=== PATIENT | female | born 1985 | race Caucasian/White ===

== ENCOUNTER → 2018-06-22 10:11 | Outpatient (CLI) | payer OTHER, SELFPAY ==
[2018-06-22 11:18] LABS: Appearance Urine UA CLEAR; Bilirubin Urine UA NEGATIVE (NEGATIVE); Color Urine UA YELLOW; Glucose Urine UA NEGATIVE (Negative); Ketones Urine UA TRACE (NEGATIVE); Leukocyte Esterase Urine UA TRACE (NEGATIVE); Nitrite Urine UA NEGATIVE (Negative); Occult Blood Urine UA NEGATIVE (Negative); Protein Urine UA TRACE (Negative); Specific Gravity Urine UA >=1.030 (1.000-1.035); Urobilinogen Urine UA 0.2 E.U./dL (0.2); pH Urine UA 5.5 (4.5-8.0)
[2018-06-22 12:08] LABS: Bacteria Urine Few (2-10); RBC Urine 1-5/HPF (0-5/HPF); Squamous Epithelial Cell Urine 5-10 /HPF; WBC Urine 5-10/HPF (0-5/HPF)
[2018-06-22 12:09] LABS: Culture Indicated Urine Cult Not Indicated; Urine Comments CX ALREADY ORDERED
[2018-06-22 14:39] LABS: Urine N gonorrhoeae NOT DETECTED
[2018-06-22 14:43] LABS: Urine Chlamydia NOT DETECTED
== END ==
PROVIDERS: PCP Specialist; Visit Provider Specialist
DX: Z3A.08 8 weeks gestation of pregnancy (principal); Z34.81 Encounter for supervision of other normal pregnancy, first trimester
CPT/HCPCS: 81003; 81015; 87086; 87491; 87591

== ENCOUNTER → 2018-06-22 10:27 | Outpatient (CLI) | payer OTHER, SELFPAY ==
[2018-06-22 11:10] LABS: Add Manual Diff / Slide Review NO; Basophils Absolute Auto 0 /uL (0-100); Basophils Percent Auto 0.4 % (0-2); Eosinophils Absolute Auto 100 /uL (0-450); Eosinophils Percent Auto 1.7 % (2-4); Hematocrit 40.5 % (36-46); Hemoglobin 13.3 g/dL (12.0-16.0); Lymphocytes Absolute Auto 1500 /uL (1100-4500); Lymphocytes Percent Auto 19.6 % (25-40); Mean Corpuscular HGB Conc 32.9 % (30-36); Mean Corpuscular Hemoglobin 31.3 PG (26-34); Mean Corpuscular Volume 95.4 fL (80-100); Monocytes Absolute Auto 600 /uL (0-900); Neutrophils Absolute Auto 5300 /uL (1500-7000); Neutrophils Percent Auto 70.3 % (50-75); Platelet Count 254 X10^3/uL (150-400); Red Blood Cell Count 4.25 X10^6/uL (4.0-5.2); Red Cell Distribution Width 13.1 % (11.6-14.8); White Blood Cell Count 7.5 X10^3/uL (4.5-11.0)
[2018-06-22 12:56] LABS: HIV 1 and 2 Antibody NEGATIVE (NEGATIVE); Hep C Virus Ab w/Reflex Quant NEGATIVE s/c (NEGATIVE); Hepatitis B Surface Antigen NEGATIVE s/c (NEGATIVE)
[2018-06-25 06:20] LABS: RPR Screen Nonreactive (Nonreactive)
== END ==
PROVIDERS: Visit Provider Specialist
DX: Z34.81 Encounter for supervision of other normal pregnancy, first trimester (principal)
CPT/HCPCS: 36415; 80055; 86703; 86787; 86803; 86850; 86900; 86901

== ENCOUNTER → 2018-09-14 14:16 | Outpatient (CLI) | payer OTHER, SELFPAY ==
--- NOTE | 2018-09-14 14:17 | DI.US.S_ITS ---
PROCEDURE: US OB >= 14 WEEKS FETUS INDICATIONS: ANATOMY OUTSIDE/PRIOR DATING DATA: Last menstrual period (LMP): 04/23/18. LMP-based estimated date of delivery (CATALINA): 01/28/19. First dating scan (date and location): 06/22/18. Estimated date of delivery (CATALINA) from first dating scan: 02/05/19. TECHNIQUE: Real-time scanning was performed of the fetus, with image documentation and biometric measurements. Endovaginal scanning: No COMPARISON: None. FINDINGS: General: A single living intrauterine gestation is present. Presentation: Vertex. Placenta: Placental position is posterior, without previa. Amniotic fluid index: 14.8 cm, normal range is 5-24 cm. heart rate: 157 beats per minute. Maternal cervical canal: 4.1 cm long. Normal lower limit is 2.5 cm. biometrics: Biparietal diameter: 20 weeks 0 days Head circumference: 19 weeks 5 days Abdominal circumference: 20 weeks 4 days Femur length: 19 weeks 6 days Estimated gestational age from initial scan: 19 weeks 3 days Composite gestational age from present scan: 20 weeks Estimated weight and percentile: 33 g; 86 percentile Measurement variability for biometric dating: +/- 7 days from 14 weeks to 15 weeks 6 days gestation, +/- 10 days from 16 weeks to 21 weeks 6 days gestation, +/- 2 weeks from 22 weeks to 27 weeks 6 days gestation, +/- 3 weeks for 28 weeks gestation or later. weight reference: 4500 g or EFW >90/95% is considered macrosomia or large for gestational age. EFW <10% is small for gestational age. EFW 5% or less is considered intra-uterine growth restriction. Anatomic survey: Neuro: Ventricles are non-dilated at less than 10 mm. Cisterna magna is normal at 3-11 mm. Cerebellum is normal in size and morphology. Nuchal skin fold: Normal at less than 6 mm between 14-21 weeks gestational age. Face: Nose and lips, facial profile are normal. Spine: No evidence for spina bifida. Heart: 4-chambered heart is present, with normal ventricular outflow tracts. Diaphragm: Diaphragm is intact. Stomach: Left-sided stomach is present. Kidneys: No hydronephrosis. Normal is less than 5 mm in 2nd trimester, less than 7 mm in 3rd trimester. Cord: 3-vessel cord has orthotopic insertion. Bladder: Normal in size. Extremities: All 4 extremities identified. IMPRESSION: 1. Normal interval growth. 2. Normal anatomic survey. Dictated by: Angel TERRY Interpreted: Nikita Mancia MD on 09/14/2018 at 16:14 Approved by: Nikita Mancia M.D. on 09/14/2018 at 16:46
== END ==
PROVIDERS: Visit Provider Specialist
DX: Z36.89 Encounter for other specified antenatal screening (principal); Z3A.20 20 weeks gestation of pregnancy
CPT/HCPCS: 76811

== ENCOUNTER → 2018-10-18 10:45 | Outpatient (CLI) | payer OTHER, SELFPAY ==
[2018-10-18 12:08] LABS: Hematocrit 36.1 % (36-46); Hemoglobin 11.9 g/dL (12.0-16.0)
[2018-10-18 12:32] LABS: GTT (PREG) 1 Hour PP 50gm Dose 160 mg/dL (76-139)
== END ==
PROVIDERS: Visit Provider Specialist
DX: Z34.92 Encounter for supervision of normal pregnancy, unspecified, second trimester (principal); Z3A.24 24 weeks gestation of pregnancy
CPT/HCPCS: 36415; 82950; 85014; 85018

== ENCOUNTER → 2019-01-04 13:51 | Outpatient (CLI) | payer OTHER, SELFPAY ==
[2019-01-05 14:07] LABS: Strep Grp B PCR NEG for Grp B Strep
== END ==
PROVIDERS: Visit Provider Specialist
DX: Z34.83 Encounter for supervision of other normal pregnancy, third trimester (principal); Z3A.36 36 weeks gestation of pregnancy
CPT/HCPCS: 87653

== ENCOUNTER 2019-01-28 10:51 | Inpatient (IN) | payer OTHER, SELFPAY ==
--- NOTE | 2019-01-28 11:35 | PM.PREOP ---
Pre-operative Note Interval Note History & Physical reviewed/Exam performed by Physician: Yes Changes to H&P: No H&P completed within 30 days and has changed as indicated here:: See ACOG form. Patient declines blood transfusion.
[2019-01-28 11:40] VITALS: BP 136/87
[2019-01-28] MEDS: LACTATED RINGERS 1,000 ML 100 ML IV ×4 (11:42→15:15)
[2019-01-28 12:10] LABS: Add Manual Diff / Slide Review NO; Basophils Absolute Auto 0 /uL (0-100); Basophils Percent Auto 0.5 % (0-2); Eosinophils Absolute Auto 100 /uL (0-450); Hematocrit 40.4 % (36-46); Hemoglobin 13.6 g/dL (12.0-16.0); Lymphocytes Absolute Auto 1300 /uL (1100-4500); Lymphocytes Percent Auto 13.9 % (25-40); Mean Corpuscular HGB Conc 33.7 % (30-36); Mean Corpuscular Hemoglobin 32.7 PG (26-34); Monocytes Absolute Auto 700 /uL (0-900); Monocytes Percent Auto 7.9 % (3-14); Neutrophils Absolute Auto 7100 /uL (1500-7000); Neutrophils Percent Auto 76.7 % (50-75); Platelet Count 134 X10^3/uL (150-400); Red Blood Cell Count 4.17 X10^6/uL (4.0-5.2); Red Cell Distribution Width 13.5 % (11.6-14.8); White Blood Cell Count 9.2 X10^3/uL (4.5-11.0)
[2019-01-28] MEDS: CEFAZOLIN 2 GM/100 ML FROZ.PIGGY IV (13:20)
--- NOTE | 2019-01-28 13:34 | SUR.OPER ---
Supine on Padded OR bed, head on pillow, safety belt at thigh, arms secured on padded arm boards at <90 degrees abduction. Bump under right buttock. Legs uncrossed with pillow under knees, gel pad to heels, tape over blanket to lower legs.
--- NOTE | 2019-01-28 13:36 | SUR.OPER ---
Viable male delivered at 1327. Cord Blood and Placenta sent with L&D nurse.
[2019-01-28 14:03] VITALS: BP 125/85; PULSE 73; RESP 12; TEMP 36.9; O2SAT 100
--- NOTE | 2019-01-28 14:04 | PM.OP.1 ---
Operative Date/Time/Diagnoses Date of procedure: 01/28/19 Time of procedure: 14:04 Pre-op diagnosis: Term with prior section for repeat section Post-op diagnosis: same Procedure & Clinicians Procedure: Repeat low-transverse section Same procedure as scheduled: Yes Indications: Term with prior section for repeat Surgeon: Susy Last [facility] [employer] Attendant: Elier Hunt Yes if Unassisted: No Anesthesia Type: Spinal Operative Notes Findings: Normal tubes ovaries and uterus with viable male weight 7 lb 4 oz, Closure Type: primary Specimen(s): none sent Applied: catheter (Turpin) Estimated Blood Loss (mL): 350 Blood products transfused: none Procedure in detail: The patient was brought to the operating room where she underwent a spinal for anesthesia. She was placed in a supine position with a left lateral tilt. A Turpin catheter was placed. Pulsatile stockings were placed and functional throughout the case. 2 g of Ancef were given IV prior to the incision. Warming was in place. The patient was prepped and draped in usual sterile fashion. A low transverse incision was made with a scalpel through the prior incision and the incision was carried down to the fascial layer which was incised transversely with scissors. The midline attachments are superiorly and inferiorly. Some bleeding was controlled Bovie. The rectus muscles were in the midline and the peritoneal incision was made with no damage to internal structures. The peritoneum was incised and superiorly and inferiorly. Bladder blade was placed and a bladder flap was developed and the bladder held away from the lower uterine segment. An incision was made in the uterus with the scalpel and the incision was extended with stretching. The head was elevated out of the abdomen and with fundal pressure the baby was delivered. The infant was bulb suctioned for clear fluid and handed off to the warmer. Cord blood was collected. The placenta delivered spontaneously with traction. The uterus was cleaned with clean laps. The uterine incision was closed in 2 layers of 0 chromic suture the first a running locking layer the second an imbricating layer. The bladder peritoneum was repaired with 2-0 Polysorb suture. The gutters were cleaned of any remaining fluids and ovaries and tubes were observed to be normal. Adequate hemostasis was noted. The perineum was closed with 2-0 Polysorb suture. The fascia layer was closed with 0 Polysorb suture with 2 stitches. The incision was irrigated and adequate hemostasis noted. The incision was closed with interrupted 3-0 Polysorb sutures and then a subcuticular stitch of 4-0 Polysorb suture. Steri-Strips were placed. The uterus was massaged to remove any clots. The patient went to recovery room in good condition. Counts of instruments and sponges were correct. Complications: none Post-operative Condition: stable Disposition: other ( Center) Plan for aftercare: Routine post section
[2019-01-28 14:08] VITALS: BP 133/80; PULSE 71; RESP 17; O2SAT 99
[2019-01-28 14:13] VITALS: BP 135/88; PULSE 70; RESP 12; O2SAT 99
[2019-01-28] MEDS: KETOROLAC 30 MG/ML VIAL IV ×2 (14:21→20:57)
[2019-01-28 14:24] VITALS: BP 141/86; PULSE 62; RESP 15; TEMP 36.6; O2SAT 98
--- NOTE | 2019-01-28 14:38 | SUR.PHASEI ---
Asked dr muniz about torodol prior to administration, dr muniz stated it was ok. pt transported to the and left with Leti and left in stable condition.
[2019-01-29] MEDS: LACTATED RINGERS 1,000 ML 100 ML IV (01:06)
[2019-01-29] MEDS: KETOROLAC 30 MG/ML VIAL IV ×2 (03:04→09:52)
[2019-01-29 05:08] LABS: Hematocrit 35.6 % (36-46); Hemoglobin 12.1 g/dL (12.0-16.0)
--- NOTE | 2019-01-29 09:00 | PM.OBPN.1 ---
Subjective - OB Subjective Patient comments: pain well controlled [place] baby status: nursing well feeding status: exclusively breast feeding Date Patient Seen: 01/29/19 Time Patient Seen: 09:00 Interval history: Post section day 1. Patient is doing well with good pain control. She was able to ambulate since having her Turpin catheter removed. Exam Vital Signs (past 8 hours): Blood pressure 132/80, pulse 64, temperature 97.9? Oxygen Delivery Method Room Air Narrative Exam Narrative: Abdomen is soft, nontender. Uterus is firm, U -1, mildly tender. Dressing is dry. Mild lochia. Extremities without edema and nontender. Objective Labs Result Diagrams: 01/29/19 04:45 Labs: Laboratory Results - last 24 hr 01/28/19 01/29/19 11:35 04:45 WBC 9.2 RBC 4.17 Hgb 13.6 12.1 Hct 40.4 35.6 L MCV 97.0 MCH 32.7 MCHC 33.7 RDW 13.5 Plt Count 134 L Neut % (Auto) 76.7 H Lymph % (Auto) 13.9 L [place] % (Auto) 7.9 Eos % (Auto) 1.0 L Baso % (Auto) 0.5 Neut # (Auto) 7100 H Lymph # (Auto) 1300 [place] # (Auto) 700 Eos # (Auto) 100 Baso # (Auto) 0 Assessment & Plan Assessment and Plan (1) Delivery by section of full-term : Status: Resolved Current Visit: No (2) Previous section: Status: Acute Current Visit: No Plan day: 1 plan OB: routine postop care Time Spent With Patient Time: Total time spent is greater than 50% in coordination of care (as documented) at patient's floor/unit and/or counseling patient: Time with patient: less than 15 minutes
[2019-01-29] MEDS: DOCUSATE 250 MG CAPSULE PO (09:45)
[2019-01-29 09:52] VITALS: TEMP 36.9
[2019-01-29 16:51] VITALS: TEMP 37.1
[2019-01-29] MEDS: IBUPROFEN 600 MG TABLET PO ×2 (16:51→23:53)
[2019-01-29] MEDS: OXYCODONE/ACETAMINOPHEN 5/325 TABLET 2 TAB PO (23:54)
[2019-01-30] MEDS: IBUPROFEN 600 MG TABLET PO ×2 (06:11→12:10)
[2019-01-30] MEDS: DOCUSATE 250 MG CAPSULE PO (09:01)
[2019-01-30 11:23] VITALS: BP 124/86; PULSE 81; RESP 16; TEMP 36.9
--- NOTE | 2019-02-01 20:02 | P.DS_ITS ---
Discharge Providers Provider Date of admission: 01/28/19 10:51 Discharge Date: 01/30/19 Primary care physician: KHOA Randolph Consults: 01/28/19 15:03 Consult to Corporate Communications Specialist Routine Comment: Discharge provider: Susy Last MD Summary Hospital Course Date Patient Seen: 01/30/19 Time Patient Seen: 08:00 Procedures: Repeat low-transverse section Hospital Course: Patient was admitted on 01/28/2019 for repeat low-transverse section at 39 weeks. Patient did well post section. By postoperative day 2. She was ambulating, urinating, passing gas, with good pain control. Peripartum Data Infant Delivery Method: Section Procedures: Repeat low-transverse section complications: none 1: Gender: Male Disposition of : home Discharge Diagnosis (1) Delivery by section of full-term : Status: Resolved (2) Previous section: Status: Acute Status at Discharge Cognitive/behavioral status at discharge: oriented Functional status at discharge: independent ambulation Overall status at discharge: patient is progressing back to baseline Time Spent with Patient Time attestation: Total time spent providing and/or coordinating discharge services: Objective Labs Result Diagrams: 01/29/19 04:45 Exam Vital Signs (past 8 hours): Blood pressure 124/86, pulse of 81, temperature 98.5? Oxygen Delivery Method Room Air Narrative Exam Narrative: Abdomen is soft, nontender. Uterus is firm, U -1, minimally tender. Dressing is clean dry and intact. Mild lochia. Extremities with out edema and nontender. Her blood type is A positive and she is rubella immune. She received Tdap in the 3rd trimester Discharge Plan Discharge Plan Patient Disposition: Home Discharge Med Rec/Prescriptions Prescriptions: New oxycodone-acetaminophen 5-325 mg Tablet 2 tab PO Q4HR PRN (Reason: Pain, Severe (7-10)) Qty: 40 RF: 0 ibuprofen 600 mg Tablet 600 mg PO Q6HR PRN (Reason: As Needed For Fever/Mild Pain) Qty: 30 RF: 0 docusate sodium 250 mg Capsule 250 mg PO DAILY Qty: 20 RF: 0 No Action No Known Home Medications RF: 0 Follow up/Referrals: Susy Last MD [Physician] - 1 Week (Remove Aquacel dressing on MondayFebruary 04 11:30 check in 1145 appointment. 4 week check on MondayMar.01 2:15 check in. if you have any questions/concerns or need to reschedule please call . ) Sandra Rose ARNP [Primary Care Provider] - Provider Discharge Instructions Diet: Regular Activity: Nothing in vagina and do not lift over 20 lb for 6 weeks Skin/Wound/Dressing Care Report to your healthcare provider any signs of infection, such as:: chills, fever, night sweats and unusual redness Dressing: Leave dressing in place until postop visit Visit Report/Discharge Packet Stand Alone Forms: Discharge: Care Discharge Data Primary Care Provider: Sandra Rose Discharges patient from system. Discharge Date/Time: 01/30/19 13:55
== END 2019-01-30 13:55 | disposition home or self-care (01) | DRG 788 ==
PROVIDERS: Admitting Provider Specialist; PCP Nurse Practitioner Family; Visit Provider Specialist
PROC: 10D00Z1 Extraction of Products of Conception, Low, Open Approach (ICD-10-PCS; CPT 59514; principal; 2019-01-28 13:00)
DX: O34.211 Maternal care for low transverse scar from previous cesarean delivery (principal); Z3A.39 39 weeks gestation of pregnancy; Z37.0 Single live birth
CPT/HCPCS: 36415; 59050; 59510; 59514; 85014; 85018; 85025; J0690; J1885; J2210; J2274; J2590

== ENCOUNTER → 2019-03-01 14:50 | Outpatient (CLI) | payer OTHER, SELFPAY | PROVIDERS: PCP Nurse Practitioner Family; Visit Provider Specialist | DX: O82 Encounter for cesarean delivery without indication (principal); T81.31XA Disruption of external operation (surgical) wound, not elsewhere classified, initial encounter | CPT/HCPCS: 87070; 87077; 87147; 87186; 87205 ==

== ENCOUNTER 2019-09-11 10:23 | Emergency (ER) | payer OTHER, SELFPAY ==
[2019-09-11 10:32] VITALS: BP 143/95; PULSE 72; RESP 18; TEMP 36.8; O2SAT 99; BMI 19.5
--- NOTE | 2019-09-11 12:01 | ED_ITS ---
HPI - Back Pain/Injury <Quiana Sloan PA-C - Last Filed: 09/11/19 13:08> General Chief Complaint: Back Pain/Injury Stated Complaint: Hurt her lower back 4 days ago Time Seen by Provider: 09/11/19 11:38 Source: patient Limitations: no limitations History of Present Illness HPI Narrative: This is a previously healthy nonsmoking 34-year-old who presents to the emergency department with complaint of back pain that has been present since Monday and is acute. She had been doing a lot of lifting of things for yard work as well as bending over and picking up after her small children quite frequently and had noted that she was having some general back aching on Monday and Monday, however on Monday she had significant worsening of this when she was rapidly pulling a mat out of the back of her car that had weight on it and she caught herself quickly so that she did not trip on her 2-year-old who was behind her. She immediately had acute pain in her low back, and since that time has had consistent intermittent pain with radiation shooting down the back of her legs to the back of her knees and occasionally to her toes. She also notes that when she stands for a long period of time, she has what feels like numbness in her low back that creeps down into her buttocks. She she has had difficulty finding position of comfort for sleeping, and is least comfortable sitting up. She has had a few instances when she has been sitting down for long period of time lying down for a long period of time when she gets up and feels like her knees might want to get out, but if she stands for a moment of this goes away. She has been taking ibuprofen [id number] for pain, as well as icing her low back with some relief. She feels the frequency that she notes the pain radiating down the back of her legs has been increasing. She denies fever, chills, headache, any loss of bowel or bladder function or change in bowel or bladder function, saddle paresthesias, extremity weakness or any other symptoms. Complaint: back pain Onset (ago): day(s) (5) Duration: constant and progressively worsening Similar Symptoms Previously: No Location: lumbar spine, right lower back and left lower back Severity: moderate Quality: sharp (Shooting down the complex), dull and tingling Radiation: buttocks, left leg and right leg Severity scale (1-10): 4 Relieving factors: immobilization Exacerbating factors: movement, sitting upright, lifting and other (Bending forward, prolonged standing) Context: while lifting Associated symptoms: denies other symptoms Treatments prior to arrival: cold therapy and NSAIDS Related Data Previous Rx's Medication Instructions Recorded docusate sodium 250 mg PO DAILY #20 cap 01/29/19 ibuprofen 600 mg PO Q6HR PRN #30 tab 01/29/19 dicloxacillin 500 mg capsule 500 mg PO QID #28 cap 03/01/19 norethindrone (contraceptive) 0.35 0.35 mg PO DAILY #84 tab 03/06/19 mg tablet oxycodone-acetaminophen 5 mg-325 2 tab PO Q4-6H PRN #30 tab 03/06/19 mg tablet diclofenac sodium 1 applictn TOP BID #100 gram NS 09/11/19 MDD 2-4 grams topically Allergies Allergy/AdvReac Type Severity Reaction Status Date / Time Sulfa (Sulfonamide Allergy Severe ANAPHYLACTI Verified 09/11/19 10:37 Antibiotics) C [SULFA (SULFONAMIDE ANTIBIOTICS)] Vicryl suture AdvReac Intermediate spitting/ Uncoded 09/11/19 10:37 did not absorb after c/section Review of Systems <Quiana Sloan PA-C - Last Filed: 09/11/19 13:08> Review of Systems Narrative: GENERAL: Denies chills, fatigue, malaise, fever, sweats. HEENT: Denies sinus pain, ear pain, sore throat, difficulty swallowing, dizziness. RESPIRATORY: Denies dyspnea, cough, wheezing, hemoptysis, sputum. CARDIOVASCULAR: Denies chest pain, palpitations, orthopnea, edema, GASTROINTESTINAL: Denies nausea, vomiting, abdominal pain, diarrhea, constipation, melena. : Denies dysuria, frequency, incontinence, hematuria, urinary retention. MUSCULOSKELETAL: Positive for low back pain with radiation into her buttocks and down the back of her legs to knees, denies weakness, joint pain, or bony pain SKIN: Denies rash, skin lesions, or other NEUROLOGIC: Denies weakness, headache, numbness, change in speech, confusion, seizures, incoordination. PSYCHIATRIC: No concerning psychosocial issues. 12 point review of systems is negative except for those stated above Patient History <Quiana Sloan PA-C - Last Filed: 09/11/19 13:08> Surgical History History of third molar tooth extraction Social History Smoking Status: Never smoker Smoking Status: Never smoker alcohol intake frequency: 0-2 drinks per day Substance Use Type: does not use Exam <Quiana Sloan PA-C - Last Filed: 09/11/19 13:08> Narrative Exam Narrative: GENERAL: 34 year old patient appears stated age. Well-nourished, well-developed patient, in mild distress. HEAD: Atraumatic. Normocephalic. EYES: Pupils equal round and reactive. Extraocular motions intact. No scleral icterus. No injection or drainage. ENT: Nose without bleeding, purulent drainage. Throat without erythema, tonsillar hypertrophy or exudate. Airway patent. NECK: Trachea midline. Non tender CARDIOVASCULAR: Regular rate and rhythm without murmurs, gallops, or rubs. RESPIRATORY: Clear to auscultation. Breath sounds equal bilaterally. No wheezes, rales, or rhonchi. GASTROINTESTINAL: Abdomen soft, non-tender, nondistended. EXTREMITIES: No edema or joint tenderness BACK: Without deformity or crepitance. No flank tenderness. No tenderness of the cervical or thoracic spine. There is tenderness bilaterally of the sacroiliac joint most notable on the left. There is moderate tenderness of the lumbar spine and paraspinal muscles most notable on the left. She has low back pain bilaterally with active flexion at the hip, with extension at the hip while standing, with bending forward greater than 15? at the waist, and active flexion at the knee bilaterally. Distal sensation and pulses are intact. Lower extremi ty strength is 5/5 bilaterally. NEURO: AOx3. SKIN: No rash or erythema of visible areas Initial Vital Signs Initial Vital Signs: Vital Signs Temperature 98.2 F 09/11/19 10:32 Pulse Rate 72 09/11/19 10:32 Respiratory Rate 18 09/11/19 10:32 Blood Pressure 143/95 H 09/11/19 10:32 Pulse Oximetry 99 09/11/19 10:32 <DO Oliverio Galvin Last Filed: 09/11/19 13:09> Initial Vital Signs Initial Vital Signs: Vital Signs Temperature 98.2 F 09/11/19 10:32 Pulse Rate 72 09/11/19 10:32 Respiratory Rate 18 09/11/19 10:32 Blood Pressure 143/95 H 09/11/19 10:32 Pulse Oximetry 99 09/11/19 10:32 Course <Quiana Sloan PA-C - Last Filed: 09/11/19 13:08> Orders Ordered: ED Orders 09/11/19 12:02 XR lumbar spine 2-3V Stat Discontinued Medications Ketorolac Tromethamine (Toradol) 15 mg IM NOW ONE Stop: 09/11/19 12:03 Last Admin: 09/11/19 12:11 Dose: 15 mg Documented by: VISHAL Vital Signs Vital signs: Vital Signs - 8 hr 09/11/19 10:32 Temperature 98.2 F Pulse Rate 72 Respiratory Rate 18 Blood Pressure 143/95 H Pulse Oximetry 99 <Xiomara Love DO - Last Filed: 09/11/19 13:09> Orders Ordered: ED Orders 09/11/19 12:02 XR lumbar spine 2-3V Stat Discontinued Medications Ketorolac Tromethamine (Toradol) 15 mg IM NOW ONE Stop: 09/11/19 12:03 Last Admin: 09/11/19 12:11 Dose: 15 mg Documented by: VISHAL Vital Signs Vital signs: Vital Signs - 8 hr 09/11/19 10:32 Temperature 98.2 F Pulse Rate 72 Respiratory Rate 18 Blood Pressure 143/95 H Pulse Oximetry 99 MDM - Back Pain/Injury <KRISTAL Mcmillan Last Filed: 09/11/19 13:08> Differential Diagnosis Differential diagnosis: Likely lumbar radiculopathy and strain of lumbar region Medical Records Attestation: I reviewed the patient's medical records. Lab Data Labs: Point of Care Testing Test Results Negative Imaging Data lumbar x-ray: Attestation: I personally reviewed and interpreted this imaging study as follows: Radiologist's Impression: [address] [address] XRay Report Signed Patient: Chari Martin EMR#: [id number] : 1985Acct:[id number] Age/Sex: 34 / FDate of Service: 09/11/19 Loc: ED Accession Number: [id number] Procedure: XR lumbar spine 2-3V Ordering Provider: Quiana Sloan P.A-C PROCEDURE: XR LUMBAR SPINE 2-3V INDICATIONS: acute new low backpain w/radiculopathy TECHNIQUE: 2 views of the lumbar spine were acquired. COMPARISON: None. FINDINGS: Bones: 5 [id number] vertebrae are present. There is normal bony alignment. No vertebral body compression fractures. No suspicious bony lesions. Soft tissues: Overlying bowel gas pattern is normal. No suspicious soft tissue calcifications. IMPRESSION: No trauma foun, source of current pain is not identified. Given presence of radiculopathy a disc herniation may be present and MR scanning may become necessary. Dictated by: Johan Magana M.D. on 09/11/2019 at 12:38 Approved by: Johan Magana M.D. on 09/11/2019 at 12:38 [facility] [place] Narrative Medical decision making narrative: This is a well-appearing previously healthy nonsmoking 34-year-old woman who presents with acute low back pain that has been present for 5 days. This occurred after a specific event when she was yanking on a mat that had weight on it and stopped her movement suddenly. Based on history and exam I suspect she has a lumbar strain as well as probable nerve compression and possibly disc compression with associated radicular symptoms bilaterally. She has no red flag symptoms. No suspicion for infectious process, labs were not obtained. Obtaining urine and lumbar x-ray today in the emergency department. Based on results of x-ray plan to have her follow up with primary care on [facility] advising that if her pain does not resolve in 7-21 days, she may need specialty care and possibly an MRI. <Xiomara Love, - Last Filed: 09/11/19 13:09> Lab Data Labs: Point of Care Testing Test Results Negative MDM Narrative Medical decision making narrative: Case discussed with myself, agree with plan and assessment at this time. Discharge Plan Departure Patient Disposition: Home Clinical Impression: Back pain due to injury, Lumbar radiculopathy, acute Acute lumbosacral myofascial strain Qualifiers: Encounter type: initial encounter Qualified Code(s): S39.012A - Strain of muscle, fascia and tendon of lower back, initial encounter Discharge Date/Time: 09/11/19 13:06 Instructions: DI for Low Back Pain, DI for Back Pain With Sciatica, DI for Back Spasm, DI for Back Strain or Sprain Activity Restrictions/Additional Instructions: There is no evidence of an emergent or life threatening illness at this time, but follow up with your doctor in 1-2 days is recommended nonetheless to continue to rule out serious underlying causes of your symptoms. Please call the office for an appointment. Please return to the Emergency Department for any worsening or persistent symptoms. Please take medications as directed. For most people with acute back pain, they may benefit from physical therapy however this isn't generally recommended in the 1st 1-2 weeks of the onset of your pain. Modifying your activity is advisable so that as much as possible you are not exacerbating her pain by putting her body in certain positions, you should definitely minimize things like leaning forward and lifting. You can continue to ice your low back effectively relief, some people find that alternating heat and ice is helpful. It can take 3 or 4 weeks before your symptoms may resolve, however occasionally people can continue to have pain after this period. If there is damage caused by compression of a disc (the gel cushion between your vertebrae) or nerve compression, it may require an MRI to verify this. It is important that you follow-up with primary care in the next 5-7 days to see how things are going, and see if you have had an improvement in your symptoms. If your pain is worsening despite modifying activity, I recommend you seek medical care sooner. You can alternate Tylenol and ibuprofen for pain using [id number] dosing. I am also prescribing a topical gel which may provide some relief for at least the muscular pain and swelling you have in your low back you can use this twice a day (max 2 grams with each use). Prescriptions: New diclofenac sodium 3 % gel 1 applictn TOP BID MDD 2-4 grams topically Qty: 100 RF: 0 No Action oxycodone-acetaminophen 5-325 mg tablet 2 tab PO Q4-6H PRN (Reason: pain) Qty: 30 RF: 0 norethindrone (contraceptive) 0.35 mg tablet 0.35 mg PO DAILY Qty: 84 RF: 1 dicloxacillin 500 mg capsule 500 mg PO QID Qty: 28 RF: 0 ibuprofen 600 mg Tablet 600 mg PO Q6HR PRN (Reason: As Needed For Fever/Mild Pain) Qty: 30 RF: 0 docusate sodium 250 mg Capsule 250 mg PO DAILY Qty: 20 RF: 0 Referrals: Marcos Omer [Non-Staff] - Sandra Rose ARNP [Primary Care Provider] -
--- NOTE | 2019-09-11 12:03 | PC.NURSE ---
Fidelina reports benind over moving floor mats in car and vacuuming when sudden pain in lower back. Reports numbness and tingling down both legs. No bowel or bladder function lost. Patient states some relief with NSAIDs and compression belt. Patient uncomfortable with sitting, standing is more comfortable but reports legs will give out at times. Reports occasionally tingling down into toes bilaterally. Steady ambulatory gait back to department from [facility]. Denies any significant trauma. Reports two c-sections in three years.
[2019-09-11] MEDS: KETOROLAC 60 MG/2 ML VIAL 15 MG IM (12:11)
== END 2019-09-11 13:06 | disposition home or self-care (01) ==
PROVIDERS: Emergency Provider Student in an Organized Health Care Education/Training Program; PCP Nurse Practitioner Family
DX: M54.16 Radiculopathy, lumbar region (principal); S39.012A Strain of muscle, fascia and tendon of lower back, initial encounter; S39.92XA Unspecified injury of lower back, initial encounter; X50.3XXA Overexertion from repetitive movements, initial encounter
CPT/HCPCS: 72100; 81025; 96372; 99283; J1885

== ENCOUNTER → 2021-10-19 08:31 | Outpatient (CLI) | payer OTHER, SELFPAY ==
[2021-10-19 19:13] LABS: Add Manual Diff / Slide Review NO; Basophils Absolute Auto 0 /uL (0-100); Basophils Percent Auto 0.8 % (0-2); Eosinophils Absolute Auto 200 /uL (0-450); Eosinophils Percent Auto 2.7 % (2-4); Hematocrit 41.5 % (36-46); Hemoglobin 13.7 g/dL (12.0-16.0); Lymphocytes Absolute Auto 1100 /uL (1100-4500); Lymphocytes Percent Auto 17.8 % (25-40); Mean Corpuscular Hemoglobin 30.9 PG (26-34); Mean Corpuscular Volume 93.7 fL (80-100); Monocytes Absolute Auto 600 /uL (0-900); Monocytes Percent Auto 9.2 % (3-14); Neutrophils Absolute Auto 4200 /uL (1500-7000); Neutrophils Percent Auto 69.5 % (50-75); Platelet Count 204 X10^3/uL (150-400); Red Blood Cell Count 4.43 X10^6/uL (4.0-5.2); Red Cell Distribution Width 13.2 % (11.6-14.8)
[2021-10-19 19:42] LABS: Alanine Aminotransferase 14 IU/L (<35); Albumin 4.4 g/dL (3.5-5.0); Albumin Globulin Ratio 1.6 (1.0-2.8); Alkaline Phosphatase 32 U/L (38-126); Aspartate Aminotransferase 20 IU/L (14-36); BUN Creatinine Ratio 13.5 (6-22); Bilirubin Total 0.6 mg/dL (0.2-1.3); Blood Urea Nitrogen 10 mg/dL (7-17); Calcium 8.8 mg/dL (8.4-10.2); Carbon Dioxide 29 mmol/L (22-32); Chloride 105 mmol/L (98-107); Cholesterol 145 mg/dL (140-199); Estimated Glomerular Filt Rate > 60 mL/min (>60); Globulin 2.7 g/dL (1.7-4.1); Glucose 82 mg/dL (70-100); HDL Cholesterol 63 mg/dL (40-60); HEMOLYSIS < 15 (0-50); LDL Cholesterol Calculated 72 mg/dL (<100); Potassium 4.1 mmol/L (3.4-5.1); Sodium 139 mmol/L (137-145); Total Protein 7.1 g/dL (6.3-8.2); Triglycerides 48 mg/dL (35-150)
[2021-10-19 20:05] LABS: TSH w/ Reflex to FT4 1.39 uIU/mL (0.47-4.68)
== END ==
PROVIDERS: PCP Physician Assistant; Visit Provider Physician Assistant
DX: F33.1 Major depressive disorder, recurrent, moderate (principal); G47.00 Insomnia, unspecified; R03.0 Elevated blood-pressure reading, without diagnosis of hypertension; Z13.220 Encounter for screening for lipoid disorders; Z83.438 Family history of other disorder of lipoprotein metabolism and other lipidemia; Z83.49 Family history of other endocrine, nutritional and metabolic diseases
CPT/HCPCS: 80053; 80061; 84443; 85025

== ENCOUNTER → 2021-11-10 09:02 | Outpatient (CLI) | payer OTHER, SELFPAY ==
[2021-11-10 19:33] LABS: Vitamin D 25 Hydroxy (D3) 39.3 ng/mL (30.0-100.0)
[2021-11-11 11:20] LABS: Vitamin B12 636 pg/mL (239-931)
== END ==
PROVIDERS: PCP Physician Assistant; Visit Provider Physician Assistant
DX: R53.83 Other fatigue (principal)
CPT/HCPCS: 82306; 82607

== ENCOUNTER → 2022-03-10 09:58 | Outpatient (CLI) | payer OTHER, SELFPAY | PROVIDERS: PCP Physician Assistant; Visit Provider Physician Assistant Medical | DX: J02.9 Acute pharyngitis, unspecified (principal) | CPT/HCPCS: 87070 ==

== ENCOUNTER → 2022-03-14 10:37 | Outpatient (CLI) | payer OTHER, SELFPAY ==
[2022-03-14 19:45] LABS: Free T3, Triiodothyronine Free 3.35 pg/mL (2.77-5.27); Free T4, Direct Thyroxine 1.17 ng/dL (0.78-2.19)
[2022-03-14 19:58] LABS: TSH w/ Reflex to FT4 1.38 uIU/mL (0.47-4.68)
== END ==
PROVIDERS: PCP Physician Assistant; Visit Provider Physician Assistant Medical
DX: E06.0 Acute thyroiditis (principal); J02.9 Acute pharyngitis, unspecified; R53.83 Other fatigue
CPT/HCPCS: 84439; 84443; 84481